=== PATIENT | male | born 1965 | race Native Hawaiian/Other Pacific Islander ===

== ENCOUNTER 2019-04-07 11:35 | Emergency (ER) | payer OTHER ==
[~2019-04-07] VITALS: Ht 172.7 cm; Wt 65.8 kg
[2019-04-07 11:50] VITALS: TEMP 98.5
[2019-04-07 13:00] LABS: PLATELET COUNT 172 K/uL (142-355)
[2019-04-07 13:08] LABS: POTASSIUM 3.5 mmol/L (3.6-5.2)
[2019-04-07 14:17] VITALS: BP 148/88
== END 2019-04-07 14:17 | disposition home or self-care (01) ==
LOC: ED 11:35
PROVIDERS: Family Medicine
DX: E86.0 Dehydration (principal); E87.6 Hypokalemia; X30.XXXA Exposure to excessive natural heat, initial encounter
CPT/HCPCS: 36415; 80053; 81000; 85027; 96360; 99284